=== PATIENT | female | born 1990 | race Hispanic/Latino ===

== ENCOUNTER 2021-10-29 17:16 | Emergency (ER) | payer MEDICAID, OTHER ==
[~2021-10-29] VITALS: Ht 165.1 cm; Wt 108.9 kg
[~2021-10-29 17:16] MED LIST: PREN1TAB80 PO
[2021-10-29 17:19] VITALS: BP 113/69
[2021-10-29 17:45] LABS: APPEARANCE,URINE CLOUDY (CLEAR); BILIRUBIN,URINE NEGATIVE (NEGATIVE); COLOR,URINE YELLOW (YELLOW); GLUCOSE, URINE (UA) NEGATIVE (NEGATIVE); KETONES,URINE 5 mg/dL (NEGATIVE); LEUKOCYTE ESTERASE ,URINE MODERATE (NEGATIVE); NITRATE,URINE NEGATIVE (NEGATIVE); OCCULT BLOOD,URINE NEGATIVE (NEGATIVE); PROTEIN,URINE TRACE mg/dL (NEGATIVE); UROBILINOGEN,URINE 0.2 mg/dL (0.2-1.0)
[2021-10-29 17:51] LABS: BACTERIA,URINE Few /HPF (None Seen); MUCUS,URINE Few LPF (None Seen); RBC,URINE 0-1 /HPF (0-1); SQUAMOUS EPITHELIAL CELL,UR Moderate /HPF (0-2); WBC,URINE 26-50 /HPF (0-1)
[2021-10-29 17:53] LABS: TRICHOMONAS,URINE Few /LPF (None Seen)
[2021-10-29 17:54] LABS: HCG,QUAL RESULT NEGATIVE (NEGATIVE)
[2021-10-29] MEDS ORDERED: MACR100 PO (19:49)
== END 2021-10-29 20:31 | disposition home or self-care (01) ==
LOC: EDH 17:16
DX: N39.0 Urinary tract infection, site not specified (principal); R11.2 Nausea with vomiting, unspecified; R42 Dizziness and giddiness; Z20.822 Contact with and (suspected) exposure to COVID-19; E03.9 Hypothyroidism, unspecified
CPT/HCPCS: 81001; 81025; 87088; 87635; 87804 ×2; 93005; 99284; C9803

== ENCOUNTER 2022-07-30 21:01 | Emergency (ER) | payer OTHER ==
[~2022-07-30] VITALS: Ht 165.1 cm; Wt 111.1 kg
[~2022-07-30 21:01] MED LIST changes: +MACR100 PO
[2022-07-30 21:02] VITALS: BP 122/94
[2022-07-30] MEDS ORDERED: OSEL75 PO (22:25)
== END 2022-07-30 22:46 | disposition home or self-care (01) ==
LOC: EDH 21:01
DX: J10.1 Influenza due to other identified influenza virus with other respiratory manifestations (principal); Z20.822 Contact with and (suspected) exposure to COVID-19; E03.9 Hypothyroidism, unspecified
CPT/HCPCS: 99283; 87635; 87804 ×2; C9803

== ENCOUNTER 2023-06-09 11:13 | Inpatient (IN) | payer OTHER ==
[~2023-06-09] VITALS: Ht 165.1 cm; Wt 113.4 kg
[~2023-06-09 11:13] MED LIST changes: +OSEL75 PO
[2023-06-09 12:16] LABS: BASOPHILS # (AUTO) 0.04 K/uL (0.00-0.20); BASOPHILS % (AUTO) 0.6 % (0.0-5.0); EOSINOPHILS # (AUTO) 0.26 K/uL (0.00-0.70); EOSINOPHILS % (AUTO) 3.9 % (0.0-8.0); HEMATOCRIT 38.5 % (36-48); IMMATURE GRANULOCYTE ABSOLUTE 0.02 K/uL (0-1); LYMPHOCYTES # (AUTO) 1.9 K/uL (1.0-4.8); MONOCYTES # (AUTO) 0.3 K/uL (0.1-1.0); NEUTROPHILS # (AUTO) 4.2 K/uL (1.8-7.7); NEUTROPHILS % (AUTO) 62.2 % (40.0-77.0); PLATELET COUNT (AUTO) 350 K/uL (130-400); RED BLOOD CELL COUNT(AUTO) 4.53 MIL/uL (4.00-5.50); RED CELL DISTRIBUTION WIDTH 13.3 % (11.0-15.5); WHITE BLOOD COUNT (AUTO) 6.7 K/uL (4.8-10.8)
[2023-06-09 12:32] LABS: CREATININE 0.7 mg/dL (0.5-1.5); POTASSIUM 3.9 mmol/L (3.5-5.1)
[2023-06-09 12:36] LABS: ALBUMIN 3.2 g/dL (3.5-5.0); BILIRUBIN,TOTAL 0.5 mg/dL (0.2-1.0); TOTAL PROTEIN, SERUM 7.5 g/dL (6.0-8.3)
[2023-06-09 12:38] LABS: APPEARANCE,URINE CLEAR (CLEAR); BILIRUBIN,URINE NEGATIVE (NEGATIVE); COLOR,URINE YELLOW (YELLOW); GLUCOSE, URINE (UA) NEGATIVE (NEGATIVE); KETONES,URINE NEGATIVE (NEGATIVE); LEUKOCYTE ESTERASE ,URINE 500 Leu/uL (NEGATIVE); NITRATE,URINE NEGATIVE (NEGATIVE); PROTEIN,URINE NEGATIVE (NEGATIVE); UROBILINOGEN,URINE 0.2 mg/dL (0.2-1.0)
[2023-06-09 12:39] LABS: ADD UA MICROSCOPIC YES; HCG,QUALITATIVE URINE NEGATIVE (NEGATIVE)
[2023-06-09 12:41] LABS: MUCUS,URINE FEW LPF (None Seen); SQUAMOUS EPITHELIAL CELL,UR FEW /HPF (0-2)
[2023-06-09] MEDS ORDERED: KETOROLAC 30MG VIAL (30MG/ML) IVP ONE (13:30)
[2023-06-09] MEDS ORDERED: CEFTRIAXONE 1G VIAL 1 GM in 0.9%NACL 50ML 50 ML IV ONE (13:30)
[2023-06-09] MEDS ORDERED: CEFTRIAXONE 1G VIAL IVPB ONE (13:30)
[2023-06-09] MEDS ORDERED: 0.9%NACL 1000ML 1,000 ML IV ONE (13:30)
[2023-06-09] MEDS ORDERED: MORPHINE 4 MG SYG IVP ONE (14:00)
[2023-06-09] MEDS ORDERED: ONDANSETRON 4MG INJ IVP ONE (14:00)
[2023-06-09] MEDS ORDERED: DICYCLOMINE HCL 10 MG/5 ML ML PO ONE (14:30)
[2023-06-09] MEDS ORDERED: MAG/ALUM/SIMETH 30 ML UDCUP PO ONE (14:30)
[2023-06-09] MEDS ORDERED: ACETAMINOPHEN 325 MG TAB PO PRN (16:30)
[2023-06-09] MEDS ORDERED: ONDANSETRON 4MG INJ IVP PRN (16:30)
[2023-06-09] MEDS: DEXTROSE 5 % AND 0.9 % NACL 1,000 ML IV SCH (16:32)
[2023-06-09 18:25] VITALS: BP 136/75; PULSE 70; RESP 17
[2023-06-09 18:51] VITALS: O2SAT 100
[2023-06-09] MEDS: MORPHINE 2 MG SYG IVP PRN (18:59)
[2023-06-09 19:59] VITALS: BP 117/75; PULSE 64; RESP 20
[2023-06-09] MEDS: ZOSYN 3.375GM +NS 50ML IVPB SCH (20:10)
[2023-06-09 20:30] VITALS: O2SAT 99
[2023-06-09] MEDS ORDERED: 0.9%NACL 50ML IV SCH (21:00)
[2023-06-09 23:11] VITALS: BP 111/73; PULSE 70; RESP 20
[2023-06-10 03:26] VITALS: BP 106/73; PULSE 68; RESP 18
[2023-06-10] MEDS: ZOSYN 3.375GM +NS 50ML IVPB SCH ×3 (03:46→19:05)
[2023-06-10] MEDS: MORPHINE 2 MG SYG IVP PRN (03:46)
[2023-06-10 05:05] LABS: BASOPHILS # (AUTO) 0.03 K/uL (0.00-0.20); BASOPHILS % (AUTO) 0.5 % (0.0-5.0); EOSINOPHILS # (AUTO) 0.27 K/uL (0.00-0.70); EOSINOPHILS % (AUTO) 4.5 % (0.0-8.0); HEMATOCRIT 34.7 % (36-48); IMMATURE GRANULOCYTE ABSOLUTE 0.02 K/uL (0-1); LYMPHOCYTES # (AUTO) 1.8 K/uL (1.0-4.8); LYMPHOCYTES % (AUTO) 29.1 % (21.0-51.0); MEAN CORPUSCULAR HEMOGLOBIN 28.3 pg (27.0-33.0); MEAN CORPUSCULAR HGB CONC 32.9 g/dL (32.0-36.0); MEAN CORPUSCULAR VOLUME 86.1 fL (79-99); MONOCYTES # (AUTO) 0.4 K/uL (0.1-1.0); MONOCYTES % (AUTO) 6.8 % (3.0-13.0); NEUTROPHILS # (AUTO) 3.5 K/uL (1.8-7.7); NEUTROPHILS % (AUTO) 58.8 % (40.0-77.0); PLATELET COUNT (AUTO) 288 K/uL (130-400); RED BLOOD CELL COUNT(AUTO) 4.03 MIL/uL (4.00-5.50); RED CELL DISTRIBUTION WIDTH 13.6 % (11.0-15.5)
[2023-06-10 05:25] LABS: ALBUMIN 2.5 g/dL (3.5-5.0); BILIRUBIN,TOTAL 0.5 mg/dL (0.2-1.0); CREATININE 0.7 mg/dL (0.5-1.5); POTASSIUM 3.5 mmol/L (3.5-5.1); TOTAL PROTEIN, SERUM 6.3 g/dL (6.0-8.3)
[2023-06-10 08:00] VITALS: BP 123/59; PULSE 72; RESP 16; O2SAT 97
[2023-06-10] MEDS: DEXTROSE 5 % AND 0.9 % NACL 1,000 ML IV SCH (09:59)
[2023-06-10 11:00] VITALS: BP 124/74; PULSE 72; RESP 16
[2023-06-10 16:00] VITALS: BP 105/69; PULSE 72; RESP 17
[2023-06-10] MEDS ORDERED: IOHEXOL-350 75 ML VIAL IV ONE (17:35)
[2023-06-10] MEDS ORDERED: DIATR MEGLU/DIATRIZOATE SODIUM 30 ML BOTTLE ONE (17:35)
[2023-06-10 20:00] VITALS: BP 109/72; PULSE 63; RESP 17
[2023-06-10 20:10] VITALS: O2SAT 100
[2023-06-11] VITALS (28 sets, daily range): BP systolic 107–146; BP diastolic 50–90; PULSE 62–97; RESP 16–22; O2SAT 96–99
[2023-06-11] MEDS: DEXTROSE 5 % AND 0.9 % NACL 1,000 ML IV SCH ×3 (00:55→18:03)
[2023-06-11] MEDS: ZOSYN 3.375GM +NS 50ML IVPB SCH ×3 (04:20→18:38)
[2023-06-11] MEDS: MORPHINE 2 MG SYG IVP PRN (10:31)
[2023-06-11 11:32] LABS: SARS-CoV-2, RNA, NAAT NEGATIVE SARS CoV-2 (NEGATIVE)
[2023-06-11 11:53] LABS: HEMATOCRIT 35.4 % (36-48); MEAN CORPUSCULAR HEMOGLOBIN 28.4 pg (27.0-33.0); MEAN CORPUSCULAR HGB CONC 32.8 g/dL (32.0-36.0); MEAN CORPUSCULAR VOLUME 86.6 fL (79-99); RED BLOOD CELL COUNT(AUTO) 4.09 MIL/uL (4.00-5.50); RED CELL DISTRIBUTION WIDTH 13.4 % (11.0-15.5); WHITE BLOOD COUNT (AUTO) 5.1 K/uL (4.8-10.8)
[2023-06-11 12:09] LABS: ALBUMIN 2.7 g/dL (3.5-5.0); BILIRUBIN,TOTAL 0.5 mg/dL (0.2-1.0); CREATININE 0.7 mg/dL (0.5-1.5); POTASSIUM 3.9 mmol/L (3.5-5.1); TOTAL PROTEIN, SERUM 6.5 g/dL (6.0-8.3)
[2023-06-11] MEDS ORDERED: LIDOCAINE PF 100MG/5ML (2%) SYRINGE 5ML ONE (13:45)
[2023-06-11] MEDS ORDERED: FENTANYL CITRATE PF 50 MCG/1 ML 2ML VIAL ONE ×2 (13:46→14:52)
[2023-06-11] MEDS ORDERED: MIDAZOLAM HCL 1 MG/ML 2ML VIAL ONE (13:46)
[2023-06-11] MEDS ORDERED: PROPOFOL 10 MG/ML 20ML VIAL IV ONE (13:46)
[2023-06-11] MEDS ORDERED: SUCCINYLCHOLINE 200MG/10ML SYR ONE (13:46)
[2023-06-11] MEDS ORDERED: ONDANSETRON 4MG INJ ONE (13:46)
[2023-06-11] MEDS ORDERED: DEXAMETHASONE SOD PHOSPHATE 10MG/ML 1ML VIAL ONE (13:46)
[2023-06-11] MEDS ORDERED: ROCURONIUM 10MG/1ML SYR 10 MG/ML ML ONE (13:46)
[2023-06-11] MEDS ORDERED: BUPIVACAINE/PF 0.5% 30ML VIAL ONE (14:17)
[2023-06-11] MEDS ORDERED: CEFAZOLIN SODIUM 1 GM VIAL ONE (14:17)
[2023-06-11] MEDS ORDERED: LIDOCAINE 2%-EPI 1:200,000 20 ML VIAL IJ ONE ×4 (14:17→15:25)
[2023-06-11] MEDS ORDERED: BUPIVACAINE/PF 0.25% 30ML VIAL IJ ONE ×4 (14:18→15:25)
[2023-06-11] MEDS ORDERED: CEFAZOLIN SODIUM 1 GM VIAL IRRIG ONE ×2 (14:23→14:50)
[2023-06-11] MEDS ORDERED: GLYCOPYRROLATE 1 MG/5 ML SYRINGE ONE (15:18)
[2023-06-11] MEDS ORDERED: NEOSTIGMINE 5MG/5ML SYR IV ONE (15:18)
[2023-06-11] MEDS ORDERED: HYDROMORPHONE 1 MG INJ IVP PRN (17:30)
[2023-06-11] MEDS: OXYCODONE/ACETAMIN 5/325MG TAB PO PRN (23:50)
[2023-06-12] MEDS: ZOSYN 3.375GM +NS 50ML IVPB SCH ×2 (03:01→11:02)
[2023-06-12 03:15] VITALS: BP 114/68; PULSE 69; RESP 16
[2023-06-12 07:49] VITALS: BP 115/63; PULSE 72; RESP 16
[2023-06-12 08:00] VITALS: O2SAT 94
[2023-06-12] MEDS: OXYCODONE/ACETAMIN 5/325MG TAB PO PRN (10:06)
[2023-06-12 11:00] VITALS: BP 136/62; PULSE 90; RESP 17
[2023-06-12] MEDS: DEXTROSE 5 % AND 0.9 % NACL 1,000 ML IV SCH (11:10)
[2023-06-12 16:00] VITALS: BP 106/50; PULSE 82; RESP 17
[2023-06-12] MEDS ORDERED: LACTULOSE 20 GM/30 ML UDCUP PO ONE (17:00)
== END 2023-06-12 17:45 | disposition home or self-care (01) | DRG 418 ==
LOC: EDH 11:13 → EDHIP 15:16 → OBSVTOIN 15:16 → 3DH 17:40
PROVIDERS: ADMIT Internal Medicine Infectious Disease; ATTEND Internal Medicine Infectious Disease
PROC: 0FT44ZZ Resection of Gallbladder, Percutaneous Endoscopic Approach (ICD-10-PCS; principal; 2023-06-11 14:30)
DX: K80.00 Calculus of gallbladder with acute cholecystitis without obstruction (principal); Z68.41 Body mass index [BMI] 40.0-44.9, adult; E03.9 Hypothyroidism, unspecified; E66.01 Morbid (severe) obesity due to excess calories; K76.0 Fatty (change of) liver, not elsewhere classified; Z20.822 Contact with and (suspected) exposure to COVID-19; K82.8 Other specified diseases of gallbladder; Z82.49 Family history of ischemic heart disease and other diseases of the circulatory system; Z83.3 Family history of diabetes mellitus
CPT/HCPCS: 36415; 74177; 76705; 80053; 81001; 81025; 83690; 83735; 85025; 85027; 87088; 87635; 88304; G0378; J0330; J0690; J0696; J1100; J1170; J1885; J2001; J2250; J2270; J2405; J2543; J2704; J2710; J3010; J3490; J7030; J7042; Q9963; Q9967